=== PATIENT | male | born 1955 | race Two or more races ===

== ENCOUNTER 2019-11-18 18:59 | Inpatient (IN) | payer MEDICARE, OTHER ==
[~2019-11-18] VITALS: Ht 175.3 cm; Wt 63.5 kg
[~2019-11-18 18:59] MED LIST: Amoxicillin Trihydrate PO; FERR325T28 PO; Folic Acid PO; TRIAMCINOLONE ACETONIDE TP
[2019-11-18] MEDS ORDERED: ACETAMINOPHEN ES 500 MG TABLET ONE (19:41)
--- NOTE | 2019-11-18 19:50 | NUR ---
PT AAOX4. BIBPA STATED "HIGH TEMP AND FELL 2HRS AGO." PT PLACED IN BED 7. PER ASSESSMENT PT TEMP 99.9 ORAL. RR EVEN AND UNLABORED. PT STATED HE IS AMBULATORY AND DOES NOT HAVE ANY SKIN ISSUES. PT PLACED ON SUPERVISOR NURSE AND PULSE OX. SAT 95% ON ROOM AIR. PT STATED HE DOES NOT HAVE ANY HISTORY AND IS NOT ALLERGIC TO ANY MEDICATION. 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 NO KO. NO PAIN. VSS. AWAITING MD FOR ORDERS.
--- NOTE | 2019-11-18 19:50 | NUR ---
Ondina bai in [place] - 11/18/19 at 2006 by DEBORA URINE COLLECTED AND SENT TO LAB
--- NOTE | 2019-11-18 19:55 | NUR ---
CONTINUOUS PROCESS ROTARY DRUM TANNER AT BEDSIDE FOR LABS.
[2019-11-18 19:56] LABS: BASOPHILS # (AUTO) 0.1 /CMM (0.0-0.2); BASOPHILS % (AUTO) 0.4 % (0.0-2.0); HEMATOCRIT 44 % (39-51); HEMOGLOBIN 14.6 g/dL (13.5-17.5); LYMPHOCYTES # (AUTO) 0.7 /CMM (0.8-4.8); LYMPHOCYTES % (AUTO) 4.4 % (20.0-44.0); MEAN CORPUSCULAR HGB CONC 33 g/dl (31.0-36.0); MEAN CORPUSCULAR VOLUME 94 fL (80-96); MONOCYTES # (AUTO) 0.9 /CMM (0.1-1.30); MONOCYTES % (AUTO) 5.3 % (2.0-12.0); NEUTROPHILS # (AUTO) 14.8 /CMM (1.8-8.9); NEUTROPHILS % (AUTO) 89.9 % (43.0-81.0); PLATELET COUNT (AUTO) 199 /CMM (150-450); RED BLOOD CELL COUNT(AUTO) 4.71 MIL/uL (4.5-6.0); WHITE BLOOD COUNT (AUTO) 16.5 K/uL (4.3-11.0)
[2019-11-18] MEDS ORDERED: ACETAMINOPHEN ES 500 MG TABLET PO ONE (20:00)
[2019-11-18] MEDS ORDERED: IV NS 0.9% 500 ML BAG IV ONE (20:00)
--- NOTE | 2019-11-18 20:02 | NUR ---
PT BROUGHT TO CT
[2019-11-18 20:06] LABS: CARBON DIOXIDE 22 mmol/L (21-32); CHLORIDE 101 mmol/L (98-107); CREATININE 1.3 mg/dL (0.6-1.3); GLUCOSE 122 mg/dL (74-106); POTASSIUM 3.2 mmol/L (3.5-5.1); SODIUM SERUM 135 mmol/L (136-145); UREA NITROGEN, BLOOD 13 mg/dL (7-18)
--- NOTE | 2019-11-18 20:08 | NUR ---
ROOM ASSIGNMENT: 314-2 TELE
[2019-11-18 20:12] LABS: ALANINE AMINOTRANSFERASE 43 U/L (12-78); ALBUMIN 3.5 g/dL (3.4-5.0); ALKALINE PHOSPHATASE 99 U/L (46-116); ASPARTATE AMINOTRANSFERASE 24 U/L (15-37); BILIRUBIN,DIRECT 0.1 mg/dL (0.0-0.2); BILIRUBIN,TOTAL 0.4 mg/dL (0.2-1.0); TOTAL PROTEIN, SERUM 8.7 g/dL (6.4-8.2)
--- NOTE | 2019-11-18 20:14 | NUR ---
BACK FROM CT
--- NOTE | 2019-11-18 20:15 | NUR ---
LACTIC 4.0
--- NOTE | 2019-11-18 20:23 | NUR ---
URINE COLLECTED AND SENT TO LAB
[2019-11-18 20:27] LABS: APPEARANCE,URINE Clear (CLEAR); BILIRUBIN,URINE Negative (NEGATIVE); BLOOD, URINE Moderate Ery/uL (NEGATIVE); COLOR,URINE Yellow (YELLOW); KETONES,URINE Negative (NEGATIVE); LEUKOCYTE ESTERASE ,URINE Small (NEGATIVE); NITRITE, URINE Positive (NEGATIVE); PROTEIN,URINE 30 mg/dl (NEGATIVE); UGLUCOSE Negative (NEGATIVE); UROBILINOGEN,URINE 0.2 EU/dL (0.2)
[2019-11-18] MEDS ORDERED: IV NS 0.9% 1,000 ML BAG IV ONE ×3 (20:30→23:30)
--- NOTE | 2019-11-18 20:37 | NUR ---
OSMEL (BOARD AND HOME ATTENDANT) [phone], AWARE OF ADMISSION
[2019-11-18 20:40] LABS: BACTERIA,URINE Many /HPF (None Seen); SQUAMOUS EPITHELIAL CELL,UR Few /HPF (None Seen); WBC,URINE TOO NUMEROUS TO COUN /HPF (0-3)
[2019-11-18] MEDS ORDERED: CEFTRIAXONE 1GM BAG (ER ONLY) 1 GM/50 ML PIGGYBACK IV ONE (21:00)
[2019-11-18] MEDS ORDERED: CEFTRIAXONE 1 G VIAL ONE (21:04)
--- NOTE | 2019-11-18 21:05 | NUR ---
TEMP 97.7
[2019-11-18] MEDS ORDERED: Magnesium 1GM/D5W 100ML PREMIX 200 ML IV ONE ×2 (21:11→21:18)
--- NOTE | 2019-11-18 21:15 | NUR ---
PER MD EKG WAS ABNORMAL. SHOWED PROLONGED QT INTERVAL. MAGNESIUM ORDERED.
--- NOTE | 2019-11-18 21:31 | NUR ---
LINE ESTABLISHED LF 20G
--- NOTE | 2019-11-18 21:45 | NUR ---
MAGNESIUM BAG 1 OUT OF 2 ADMINISTERED. PER MD BAXTER OKAY TO GIVE EACH BAG OVER 30 MINS.
--- NOTE | 2019-11-18 21:52 | NUR ---
PT RESTING COMFORTABLY. VSS.
--- NOTE | 2019-11-18 21:54 | NUR ---
BED ASSIGNMENT 106 [facility]
--- NOTE | 2019-11-18 21:58 | NUR ---
ANGE HOOP MAKER MACHINE AT BEDSIDE
--- NOTE | 2019-11-18 21:58 | NUR ---
PT MOVED OUT OF BED. PULLED OUT BOTH IVS.
--- NOTE | 2019-11-18 22:06 | NUR ---
NEW IV INITIATED LAC 20G
--- NOTE | 2019-11-18 22:15 | NUR ---
BAG 2 OF MAGNESIUM ADMINISTERD OVER HALF HOUR. PER MD ORDER.
[2019-11-18] MEDS ORDERED: FLUO25PO10 MC (22:33)
[2019-11-18] MEDS ORDERED: ATOR20TA PO (22:33)
[2019-11-18] MEDS ORDERED: QUET100T PO (22:33)
[2019-11-18] MEDS ORDERED: MAGNESIUM HYDROXIDE 30 ML UDC PO PRN (23:00)
[2019-11-18] MEDS ORDERED: VANCOMYCIN 1 GM in IV D5W 250 ML IV ONE (23:00)
[2019-11-18] MEDS ORDERED: ZOLPIDEM TARTRATE 5 MG TABLET PO PRN (23:00)
[2019-11-18] MEDS ORDERED: ACETAMINOPHEN 325 MG TABLET PO PRN (23:00)
[2019-11-18] MEDS ORDERED: ACETAMINOPHEN 650 MG/SUPP.RECT RC PRN (23:00)
[2019-11-18] MEDS ORDERED: HYDROCODONE/APAP 5/325MG 1 EACH TABLET PO PRN (23:00)
[2019-11-18] MEDS ORDERED: ONDANSETRON HCL/PF 4 MG/2 ML VIAL IVP PRN ×2 (23:00)
--- NOTE | 2019-11-18 23:04 | NUR ---
pt was transferred to 106 under acls
--- NOTE | 2019-11-18 23:07 | NUR ---
PT TRANSFERED PER ACLS PROTOCOL
[2019-11-18 23:20] VITALS: BP 103/59
[2019-11-18] MEDS ORDERED: VANCOMYCIN 1 GM VIAL ONE (23:23)
[2019-11-19] VITALS (7 sets, daily range): BP systolic 97–133; BP diastolic 59–82
--- NOTE | 2019-11-19 03:37 | NUR ---
TELE-TD/TALENT PARTNER CALLED NURSING CHLOROBUTADIENE SCRUBBER OPERATOR FOR IVF NS WITH 20meq KCL.
[2019-11-19] MEDS ORDERED: IV PREMIX NS +20MEQ KCL 1 L IV ONE (04:37)
[2019-11-19] MEDS: Potassium Chloride 20 MEQ in IV NS 0.9% 1,000 ML IV PRN ×2 (05:07→23:18)
[2019-11-19 06:17] LABS: BASOPHILS % (AUTO) 0.1 % (0.0-2.0); HEMATOCRIT 38 % (39-51); HEMOGLOBIN 12.5 g/dL (13.5-17.5); LYMPHOCYTES # (AUTO) 1.5 /CMM (0.8-4.8); LYMPHOCYTES % (AUTO) 6.9 % (20.0-44.0); MEAN CORPUSCULAR HGB CONC 33 g/dl (31.0-36.0); MEAN CORPUSCULAR VOLUME 93 fL (80-96); MONOCYTES # (AUTO) 1.9 /CMM (0.1-1.30); MONOCYTES % (AUTO) 8.6 % (2.0-12.0); NEUTROPHILS # (AUTO) 18.9 /CMM (1.8-8.9); NEUTROPHILS % (AUTO) 84.4 % (43.0-81.0); PLATELET COUNT (AUTO) 181 /CMM (150-450); RED BLOOD CELL COUNT(AUTO) 4.09 MIL/uL (4.5-6.0); WHITE BLOOD COUNT (AUTO) 22.4 K/uL (4.3-11.0)
[2019-11-19 06:42] LABS: ALANINE AMINOTRANSFERASE 38 U/L (12-78); ALBUMIN 2.6 g/dL (3.4-5.0); ALKALINE PHOSPHATASE 72 U/L (46-116); ASPARTATE AMINOTRANSFERASE 24 U/L (15-37); BILIRUBIN,TOTAL 0.5 mg/dL (0.2-1.0); CALCIUM, SERUM 7.8 mg/dL (8.5-10.1); CARBON DIOXIDE 23 mmol/L (21-32); CHLORIDE 103 mmol/L (98-107); GLUCOSE 125 mg/dL (74-106); POTASSIUM 3.2 mmol/L (3.5-5.1); SODIUM SERUM 135 mmol/L (136-145); TOTAL PROTEIN, SERUM 7.2 g/dL (6.4-8.2); UREA NITROGEN, BLOOD 10 mg/dL (7-18)
--- NOTE | 2019-11-19 06:45 | NUR ---
TELE-1/LEGAL MANAGER NEW IV PLACED LEFT FOREARM GAUGE 20. PT TOLERATED WELL.
[2019-11-19] MEDS ORDERED: FEE PK DOSING 1 MIN EA MC ONE (07:24)
[2019-11-19 07:30] LABS: C-REACTIVE PROTEIN 15.8 mg/dL (0.0-0.9)
[2019-11-19 07:31] LABS: CREATINE KINASE, TOTAL 251 U/L (39-308); FERRITIN 277 ng/mL (8-388)
--- NOTE | 2019-11-19 08:00 | NUR ---
KRYSTLE RN OPENING NOTE: RECEIVED PATIENT IN ROOM. NO SIGNS OF RESPIRATORY DISTRESS. PT IS ON ROOM AIR SAT 99 %.SAFETY MEASURES ARE IMPLEMENTED, BED IN LOWEST POSITION, LOCKED, SIDE RAILS UP, CALL LIGHT WITHIN REACH. WILL CONTINUE TO MONITOR.
[2019-11-19] MEDS: VANCOMYCIN 0.75 GM in IV D5W 250 ML IV SCH ×3 (08:28→23:19)
[2019-11-19] MEDS: PANTOPRAZOLE 40 MG VIAL IV SCH (08:29)
[2019-11-19] MEDS ORDERED: K PHOS NEUTRAL 250 MG TABLET PO ONE (11:00)
--- NOTE | 2019-11-19 11:23 | NUR ---
KRYSTLE RN NOTES PT PULLED IV OUT WHEN USED THE RESTROOM GOING TO PUT IV.
--- NOTE | 2019-11-19 17:59 | NUR ---
KRYSTLE RN NOTES AKNOWLEDGE DVT PUMP ORDER. PUT DVT PUMPS.
--- NOTE | 2019-11-19 18:12 | NUR ---
KRYSTLE RN CLOSING NOTE: PATIENT IN ROOM RESTING . NO SEPSIS NO FEVER. NO SIGNS OF RESPIRATORY DISTRESS. PT IS ON ROOM AIR SAT 99 %.SAFETY MEASURES ARE IMPLEMENTED, BED IN LOWEST POSITION, LOCKED, SIDE RAILS UP, CALL LIGHT WITHIN REACH. WILL ENDORSE TO NIGHTSHIFT FOR CARMEN.
--- NOTE | 2019-11-19 19:25 | NUR ---
RN OPENING NOTE PATIENT AWAKE A/O X 3 IN BED WITH HOB IN SEMI-FOWLERS POSITION. NO S/S OF RESPIRATORY DISTRESS. PT IS ON ROOM AIR. IV TO LFA #22 PATENT, INTACT AND FLUSHING WELL. SAFETY MEASURES IN PLACE, BED LOCKED AND IN LOWEST POSITION, CALL LIGHT WITHIN REACH. WILL CONTINUE TO MONITOR PT.
[2019-11-19] MEDS: CEFTRIAXONE 1 G in IV D5W 50 ML IV SCH (21:09)
--- NOTE | 2019-11-19 21:25 | NUR ---
RN NOTE REPORT GIVEN TO GULSHAN ALCALA FOR CARMEN, AWARE PT C/O PAIN TO LFA-IV INSERTION SITE, NO REDNESS TO SITE NOTED. AWARE PT NEEDS A NEW IV REINSERTION.
--- NOTE | 2019-11-19 21:31 | NUR ---
TRANSFER OF CARE ASSOCIATE DIRECTOR CAREER SERVICES RECEIVE PT IN BED A/O X 3, SR 79 NOT IN DISTRESS, STABLE, WILL CONT TO MONITOR
[2019-11-20] VITALS (8 sets, daily range): BP systolic 109–160; BP diastolic 55–96
--- NOTE | 2019-11-20 06:02 | NUR ---
DRY WALL NAILER PT MONITORED ACCORDINGLY, STABLE, O2 SAT WNL. SR 75 HR IN TELE MONITOR, NO SOB, NEEDS ATTENDED AND ANTICIPATED, KEPT CLEAN, DRY AND COMFORTABLE. NO C/O PAIN,SAFETY MEASURES AT ALL TIMES. WILL ENDORSE TO NEXT SHIFT.
--- NOTE | 2019-11-20 07:30 | NUR ---
RN Opening NOTES Received patient at bed, resting calmly, A?Ox3, Austrian speaker, fully awake.Patient is on RA, tolerating well. resp rate 95%, Tele-monitor noted with readings of Sinus Rhythm in 70s, Skin is intact, IV on RAC G22 noted. running KCL @90 ml/hr. Safety measures implemented, call light within reach, bed in lowest position, will cont to monitor
--- NOTE | 2019-11-20 08:05 | NUR ---
Hold Vancomycin, waiting for trough results
--- NOTE | 2019-11-20 08:05 | NUR ---
Patient is refusing to wear DVT device, saying "it's uncomfortable, and I don't need it" Charge nurse notified
[2019-11-20 08:14] LABS: CALCIUM, SERUM 8.3 mg/dL (8.5-10.1); CREATININE 0.8 mg/dL (0.6-1.3); POTASSIUM 3.5 mmol/L (3.5-5.1)
[2019-11-20] MEDS: PANTOPRAZOLE 40 MG VIAL IV SCH (08:28)
[2019-11-20] MEDS: VANCOMYCIN 0.75 GM in IV D5W 250 ML IV SCH (08:28)
--- NOTE | 2019-11-20 08:30 | NUR ---
Patient removed his IV, charge nurse notified
--- NOTE | 2019-11-20 09:30 | NUR ---
New IV line started on Left Hand, G 20, applied arm sleeve over
[2019-11-20 11:44] LABS: BASOPHILS % (AUTO) 0.2 % (0.0-2.0); EOSINOPHILS % (AUTO) 0.5 % (0.0-6.0); HEMATOCRIT 39 % (39-51); HEMOGLOBIN 12.5 g/dL (13.5-17.5); LYMPHOCYTES # (AUTO) 1.5 /CMM (0.8-4.8); LYMPHOCYTES % (AUTO) 8.3 % (20.0-44.0); MEAN CORPUSCULAR HGB CONC 32 g/dl (31.0-36.0); MEAN CORPUSCULAR VOLUME 94 fL (80-96); MONOCYTES # (AUTO) 1.2 /CMM (0.1-1.30); MONOCYTES % (AUTO) 6.5 % (2.0-12.0); NEUTROPHILS # (AUTO) 15.6 /CMM (1.8-8.9); NEUTROPHILS % (AUTO) 84.5 % (43.0-81.0); PLATELET COUNT (AUTO) 165 /CMM (150-450); RED BLOOD CELL COUNT(AUTO) 4.11 MIL/uL (4.5-6.0); WHITE BLOOD COUNT (AUTO) 18.4 K/uL (4.3-11.0)
[2019-11-20] MEDS: VANCOMYCIN 1 GM in IV D5W 250 ML IV SCH (15:22)
[2019-11-20] MEDS ORDERED: K PHOS NEUTRAL 250 MG TABLET PO ONE (15:30)
--- NOTE | 2019-11-20 16:20 | NUR ---
Patient BP is 160/87, will reassess every 15 min
--- NOTE | 2019-11-20 16:50 | NUR ---
Patient BP is not dropping, readings is accurate , last taken was 157/94, Md is notified
--- NOTE | 2019-11-20 17:15 | NUR ---
Maximus with Dr Mitchell over the phone, ordered Lisinopril 10 mg, BID, 1st dose STAT, will implement
[2019-11-20] MEDS: LISINOPRIL (10MG) 10 MG TABLET PO SCH (17:34)
--- NOTE | 2019-11-20 18:45 | NUR ---
Reassess blood pressure : 151/91
--- NOTE | 2019-11-20 19:15 | NUR ---
RN CLOSING NOTES Patient resting calmly no s/sx of resp distress noted, at bed, all meds given, comfort need are met, safety measures are implemented, call light within reach, bed in lowest position, will endorse to PM shift nurse for CARMEN
--- NOTE | 2019-11-20 20:00 | NUR ---
RN OPENING NOTE RECEIVED PT IN BED. PT IS A/O X3. PT IS ON RA SATING 96%. NO S/S OF DISTRESS NOTED. NO SOB. PT HAS IV ON L HAND 22 G, S/L,PATENT AND FLUSHES WELL. SAFETY MEASURES IN PLACE BED AT LOWEST POSITION, LOCKED, SIDE RAILS UP, CALL LIGHT IN REACH WILL CONTINUE TO MONITOR.
[2019-11-20] MEDS: CEFTRIAXONE 1 G in IV D5W 50 ML IV SCH (21:12)
--- NOTE | 2019-11-20 22:26 | NUR ---
RN NOTES CALLED LAB, SPOKE TO JANNETH TO CHECK FOR COVID RESULT; STILL PENDING SINCE NOVEMBER 17. WILL CHECK AND CALL ME BACK
[2019-11-21] VITALS (7 sets, daily range): BP systolic 100–140; BP diastolic 70–82
[2019-11-21] MEDS: VANCOMYCIN 1 GM in IV D5W 250 ML IV SCH (00:15)
--- NOTE | 2019-11-21 06:27 | NUR ---
COVID TEST NEGATIVE
--- NOTE | 2019-11-21 06:46 | NUR ---
RN CLOSING NOTE PT REMAINED STABLE DURING MY SHIFT. VSS. WILL ENDORSE TO INCOMING SHIFT FOR CARMEN.
--- NOTE | 2019-11-21 07:30 | NUR ---
RN NOTES RECEIVED PATIENT IN BED. ASLEEP BUT IS EASILY AWAKEN BY VERBAL STIMULI. AWAKE AND ORIENTED X4. AABLE TO MAKE NEEDS KNOWN. NO SHORTNESS OF BREATH NOTED AT THIS TIME. TOLERATING ROOM AIR. NO COMPLAINTS OF PAIN OF ANY KIND AT THIS TIME. SINUS RHYTHM ON THE MONITOR WITH HR ON THE 80s. PATIENT COMFORTABLE INN BED. ENCOURAGE TO CALL FOR HELP/ASSISTANCE WHEN NEEDED. CALL LIGHT PLACED WITHINN REACH. SAFETY MEASURES IN PLACE. WILL CONTINUE TO MONITOR PATIENT ACCORDINGLY
[2019-11-21] MEDS: LISINOPRIL (10MG) 10 MG TABLET PO SCH ×2 (08:00→17:40)
[2019-11-21] MEDS: PANTOPRAZOLE 40 MG VIAL IV SCH (08:00)
[2019-11-21 08:06] LABS: CALCIUM, SERUM 8.7 mg/dL (8.5-10.1); CREATININE 0.9 mg/dL (0.6-1.3)
[2019-11-21] MEDS: POTASSIUM CHLORIDE 20 MEQ TAB.PRT.SR PO SCH ×3 (12:41→15:01)
--- NOTE | 2019-11-21 15:00 | NUR ---
RN NOTES PATIENT ENDORSED FOR CONTINUITY OF CARE TO FREDRICK SOLOMON
--- NOTE | 2019-11-21 15:10 | NUR ---
RN NOTES PATIENT TRANSFERRED TO ROOM 207-1. HANDS OFF
--- NOTE | 2019-11-21 15:15 | NUR ---
Received patient via wheelchair. Patient ambulatory with steady gait. Patient oriented x3 .On room air saturation 100%. No distress noted. Skin is intact. IV line patent and intact HL. Will continue to monitor.
--- NOTE | 2019-11-21 19:01 | NUR ---
PATIENT IS RESTING IN ROOM ., NO COMPLAIN OF PAIN OR ANY DISCOMFORT. iv LINE INTACT AND PATENT, FLUSHING WELL , HL. ALL NEEDS ATTENDED. SAFETY PRECAUTIONS IN PLACE , WILL ENDORSE TO NEXT SHIFT FOR CARMEN.
--- NOTE | 2019-11-21 19:10 | NUR ---
RN OPENING NOTES Received patient A/O x4, awake on bed. On RA, no SOB/respiratory distress noted, patient denies any discomfort at this time. Kept on bed clean, dry and comfortable. Call light within easy reach. Will continue to monitor accordingly.
[2019-11-21] MEDS: CEFTRIAXONE 1 G in IV D5W 50 ML IV SCH (20:04)
--- NOTE | 2019-11-22 06:12 | NUR ---
RN CLOSING NOTES Pt asleep, easily awaken. On RA, no distress/denies any discomfort. Afebrile the whole shift, no new unusualities noted. Due meds given as ordered, no ASE noted. Pt noted able to attend ADLs independently, turn and repositions on bed independently. Call light within easy reach. Endorsed to the next shift.
[2019-11-22 07:24] LABS: CALCIUM, SERUM 9.1 mg/dL (8.5-10.1); CREATININE 0.8 mg/dL (0.6-1.3); POTASSIUM 3.2 mmol/L (3.5-5.1)
[2019-11-22 07:32] LABS: BASOPHILS % (AUTO) 0.7 % (0.0-2.0); EOSINOPHILS % (AUTO) 2.8 % (0.0-6.0); HEMATOCRIT 42 % (39-51); HEMOGLOBIN 13.3 g/dL (13.5-17.5); LYMPHOCYTES # (AUTO) 1.6 /CMM (0.8-4.8); LYMPHOCYTES % (AUTO) 25.4 % (20.0-44.0); MEAN CORPUSCULAR HGB CONC 32 g/dl (31.0-36.0); MEAN CORPUSCULAR VOLUME 96 fL (80-96); MONOCYTES # (AUTO) 0.6 /CMM (0.1-1.30); NEUTROPHILS # (AUTO) 3.7 /CMM (1.8-8.9); NEUTROPHILS % (AUTO) 61.1 % (43.0-81.0); PLATELET COUNT (AUTO) 236 /CMM (150-450); RED BLOOD CELL COUNT(AUTO) 4.36 MIL/uL (4.5-6.0); WHITE BLOOD COUNT (AUTO) 6.1 K/uL (4.3-11.0)
[2019-11-22 08:00] VITALS: BP 109/71
--- NOTE | 2019-11-22 08:00 | NUR ---
rn notes Received patient in the bed a/o x3, stable was refused pain, no acute respiratory distress. Patient was state "I am feeling depress, because i am diverse, and wanted to speak with my kids". Administered scheduled medication, v/s stable. patient refractable refused si/hi, ambulatory going bathroom. safety precaution maintained all the time.
[2019-11-22] MEDS ORDERED: POTASSIUM CHLORIDE 20 MEQ TAB.PRT.SR PO ONE (09:00)
[2019-11-22] MEDS: PANTOPRAZOLE 40 MG VIAL IV SCH (09:44)
[2019-11-22] MEDS: LISINOPRIL (10MG) 10 MG TABLET PO SCH ×2 (09:44→16:52)
--- NOTE | 2019-11-22 11:00 | NUR ---
rn notes patient going to d/c back to [facility] per hospitalist order. will take ATB x5 more days, and follow PCP.
[2019-11-22 16:00] VITALS: BP 109/73
[2019-11-22 16:52] VITALS: BP 109/73
--- NOTE | 2019-11-22 18:50 | NUR ---
LUMBER MOVER NOTES PATIENT DISCHARGE AT THIS TIME GOING BACK TO THE [facility] AT THIS TIME. PATIENT STABLE, V/S WNL. MED RECONCILIATION AND DISCHARGE ORDER REVIEWED AND EXPLAINED TO PATIENT. PATENT SIGN PAPERWORK EDUCATED PATIENT CONTINUED ANTIBIOTICS, AND WILL FOLLOW PCP. PATIENT VERBALIZED UNDERSTANDING. GIVEN CLOTHS TO THE PATIENT. ALSO HANDED PAPERWORK WITH PRESCRIPTION TO THE PATIENT. PATIENT ESCORTED TO THE LOBBY FOR SAFETY. PATIENT AGRICULTURAL CROP FARM MANAGER BY TAXI.
== END 2019-11-22 18:50 | disposition home or self-care (01) | DRG 871 ==
LOC: ER 19:05 → TELE-TD 22:10 → MEDSG1 11-21 10:02 → MEDSG2 11-21 15:14
PROVIDERS: ADMIT Nurse Practitioner Acute Care; ATTEND Internal Medicine
DX: A41.9 Sepsis, unspecified organism (principal); N17.0 Acute kidney failure with tubular necrosis; E87.1 Hypo-osmolality and hyponatremia; E87.2 Acidosis; N39.0 Urinary tract infection, site not specified; E87.6 Hypokalemia; F17.210 Nicotine dependence, cigarettes, uncomplicated; E78.5 Hyperlipidemia, unspecified; I10 Essential (primary) hypertension; R65.20 Severe sepsis without septic shock; F20.9 Schizophrenia, unspecified; B96.20 Unspecified Escherichia coli [E. coli] as the cause of diseases classified elsewhere; W19.XXXA Unspecified fall, initial encounter; Y93.9 Activity, unspecified; Y92.89 Other specified places as the place of occurrence of the external cause; F39 Unspecified mood [affective] disorder; F32.9 Major depressive disorder, single episode, unspecified
CPT/HCPCS: 36415; 70450-TC; 71045-TC; 72125-TC; 80048-TC; 80053-TC; 80076-TC; 80202-TC; 81000-TC; 82550-TC; 82728-TC; 83605-TC; 83615-TC; 83735-TC; 84100-TC; 84484-TC; 85025-TC; 85652-TC; 85730-TC; 86140-TC; 87040-TC; 87081-TC; 87086-TC; 87186-TC; C9113; G0378; J0696; J3370; J3475; J3480; J3490; J7030; J7040; J7050; J7060; U0003-CS